=== PATIENT | male | born 1980 | race Caucasian/White ===

== ENCOUNTER 2019-03-27 19:26 | Emergency (ER) | payer BC ==
[2019-03-27] MEDS ORDERED: Lidocaine 1% 20 ML MDV INJECT ONE (19:42)
--- NOTE | 2019-03-27 20:01 | EDM.PDOC ---
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 Patient states that he is down in [facility] hunting deer today. He was sharpening a knife to deep bones are deer when he accidentally lacerated his right index finger and long finger. Lacerations occurred over the dorsal aspect of the right hand on at the PIP joint of the index finger with a deep laceration. The long finger laceration is is more superficial. He is able to actively extend at the PIP joint of the index and long finger. These haven't considerable bleeding coming from the index finger. He denies any numbness or tingling the distal tips of the fingers. No other complaints are voiced. After a digital block was performed of the right index finger, finger is prepped in the usual sterile fashion. [place] drain was used as a tourniquet around the index finger. The wound was copiously irrigated with a combination of saline and peroxide and further explored. There is at least 50% partial tendon involvement with joint capsule overlying the PIP joint. Tendon and capsule was tagged using a blue Prolene. The wound was loosely closed using 4-0 nylon simple sutures. [place] [facility] was called and arrange for follow-up appointment early next week for tendon and capsule repair. Long finger was closed with simple sutures using 4-0 nylon. Light dressings and Xeroform were applied and patient was placed in a fiberglass splint with the index and long fingers in extension. Onset: Today Onset Date: 03/27/19 Onset Time: 18:40 Duration: Minutes: Location: Reports: Upper Extremity, Right Quality: Reports: Throbbing Severity: Mild Improves with: Reports: None Worsens with: Reports: None Associated Symptoms: Reports: No Other Symptoms - Related Data Allergies Allergy/AdvReac Type Severity Reaction Status Date / Time Sulfa (Sulfonamide Allergy Intermediate Rash Verified 03/27/19 19:41 Antibiotics) ED ROS GENERAL - Review of Systems Review Of Systems: ROS reveals no pertinent complaints other than HPI. ED EXAM, SKIN/RASH Exam: See Below Exam Limited By: No Limitations General Appearance: Alert, WD/WN, No Apparent Distress Throat/Mouth: Normal Voice Head: Atraumatic Respiratory/Chest: No Respiratory Distress, Lungs Clear Cardiovascular: Regular Rate, Rhythm Extremities: Normal Inspection, Normal Capillary Refill Neurological: Alert, Oriented, No Motor/Sensory Deficits Psychiatric: Normal Affect, Normal Mood Skin: Warm, Dry, Intact, Normal Color, Wound/Incision (Deep full-thickness laceration over the right index finger involving the PIP joint and extensor tendon partially area superficial laceration over the dorsal aspect the right in long finger.) ED SKIN PROCEDURES - Laceration/Wound Repair Right Dorsal Digit - 3rd (Middle) Appearance: Subcutaneous, Clean Distal NVT: Neuro & Vascular Intact, Other (Partial laceration of the extensor tendon right index finger) Anesthetic Type: Digital Local Anesthesia - Lidocaine (Xylocaine): 1% Plain Local Anesthetic Volume: Other (10 mL digital block right index finger, 5 mL anesthetic used around the incision right long finger) Exploration/Debridement/Repair: Wound Explored, In a Bloodless Field, Other ( Extensor tendon and capsule was tagged with blue 4-0 Prolene) Closed with: Sutures Lac/Wound length In cm: 2 Suture Size: 4-0 # of Sutures: 7 Suture Type: Nylon - Splinting Right 3rd Digit Provider Post-Splint Application NV Check: NV Status Normal, Good Position Course - Orders/Labs/Meds Meds: Medications Discontinued Medications Generic Name Dose Route Start Last Admin Trade Name Freq PRN Reason Stop Dose Admin Lidocaine HCl 20 ml 03/27/19 19:42 Xylocaine 1% INJECT 03/27/19 19:43 ONETIME ONE - Re-Assessments/Exams Free Text/Narrative Re-Assessment/Exam: 03/27/19 21:11 Patient procedure well no complaints are voiced. Patient reports compliance and follow-up with orthopedic hand surgeon in [place]. Patient will call office on Saturday. Departure - Departure Time of Disposition: 21:12 Disposition: Home, Self-Care 01 Condition: Good Clinical Impression: Laceration of right index finger with tendon involvement Qualifiers: Encounter type: initial encounter Qualified Code(s): S61.210A - Laceration without foreign body of right index finger without damage to nail, initial encounter Laceration of middle finger of right hand without complication Qualifiers: Encounter type: initial encounter Qualified Code(s): S61.212A - Laceration without foreign body of right middle finger without damage to nail, initial encounter - Discharge Information Forms: ED Department Discharge - Assessment/Plan Assessment:: Right index finger laceration Partial extensor tendon laceration right index finger Right long finger laceration Plan: 1. Duricef 500 mg twice a day until follow-up with orthopedic hand surgeon. 2. Call for appointment was [facility] with Dr. Swartz on Saturday. 3. Continue with splint and dressings until follow-up with orthopedics. 4. Tetanus was updated today
[2019-03-27] MEDS ORDERED: Diphtheria,Pertussis(Acell),Tetanus Vaccine 0.5 ML SDV IM ONE (20:46)
[2019-03-27] MEDS ORDERED: Cefadroxil 500 MG Cap PO SCH (21:00)
== END 2019-03-27 21:30 | disposition home or self-care (01) ==
LOC: KA.ED 19:26
DX: S56.421A Laceration of extensor muscle, fascia and tendon of right index finger at forearm level, initial encounter (principal); S61.212A Laceration without foreign body of right middle finger without damage to nail, initial encounter; Z23 Encounter for immunization; Z88.2 Allergy status to sulfonamides; W26.0XXA Contact with knife, initial encounter; Y93.89 Activity, other specified; Y92.89 Other specified places as the place of occurrence of the external cause
CPT/HCPCS: 12001; 90471; 90715; 99282; A9270; J2001